=== PATIENT | female | born 1985 | race African-American/Black ===

== ENCOUNTER 2017-08-09 15:00 | Inpatient (IN) | payer OTHER ==
[~2017-08-09] VITALS: Ht 175.3 cm; Wt 72.6 kg
--- NOTE | ~2017-08-09 | O ---
[facility] [place] [address] OPERATIVE REPORT Name: DANIELLE ALVAREZ Room #: 416-P [facility] IN M.R.#: [id number] Admission: 08/09/17 Attend Phys: Murtaza Cleveland DO Discharge: 08/11/17 Date of : 87 Report #: [id number] THIS REPORT FOR: //name// CC: [facility] physician/PCP Murtaza Cleveland DATE OF SERVICE: 08/10/2017 SERVICE: Orthopedics. FACILITY: [facility] SURGEON: Kelvin Baxter M.D. ASTHMA EDUCATOR: None. PREOPERATIVE DIAGNOSES: Right tibia and fibula shaft fractures. POSTOPERATIVE DIAGNOSES: Right tibia and fibula shaft fractures. PROCEDURE: Closed reduction with application of long leg cast to right tibia and fibula fractures. COMPLICATIONS: None. DRAINS: None. SPECIMENS: None. FINDINGS: Adequate alignment after casting and cast wedging, confirmed on fluoroscopy. HISTORY AND INDICATIONS: The patient is a 32-year-old female who sustained a fall while rollerskating with her children yesterday. She was admitted for definitive management and her risks and benefits to the various treatment options were reviewed with her and her in some detail at the bedside. We discussed both surgical and nonsurgical measures and we reviewed the various considerations with each. After a lengthy discussion, she ultimately selected to a trial casting with closed radiographic followup. In the event that casting results in loss of alignment, we will convert to surgical treatment likely an IM nailing. We discussed the risks of nailing in terms of anterior knee pain, scarring, typical surgical risks including infection, etc. as well as other considerations related to nonsurgical measures after questions were answered we made plans to proceed with closed reduction and casting of the right leg. PROCEDURE IN DETAIL: After right leg was correctly identified as the operative [facility] [address] [place] [address] OPERATIVE REPORT Name: DANIELLE ALVAREZ Room #: 416-P [facility] IN [place]#: [id number] Admission: 08/09/17 Attend Phys: Murtaza Cleveland DO Discharge: 08/11/17 Date of : 87 Report #: [id number] extremity, the patient was taken to the operating room where she was transferred from the hospital bed to the operating table and sedation was induced without complication. She was padded appropriately. A time-out procedure was performed and then the right leg was evaluated under multiple planes of fluoroscopy. There was an apex posterior angulation, but overall the alignment was very close to anatomic with the exception of slight lateral translation of the distal segment, a well-padded long leg cast was applied in the following fashion. First, the stockinette was applied and then padding was wrapped from toe to thigh and then a short leg cast incorporating the ankle was rolled and mold was held after multiple planes of x-ray were used to assess the overall alignment. Once this had cured, I again assessed the alignment on the AP and lateral and felt that the apex posterior angulation could be improved some, so in the cast based on the x-rays and then using cast saw to perform a 3/4 circumferential cut in the cast transversely with care taken to avoid injury to the soft tissues and then used tongue depressor segments to perform wedging of the cast at the appropriate position after the wedges were put into place x-ray was taken to confirm that an improved alignment had been achieved and then a blunt object was split between the cast padding and the cast wedge to ensure that there was not any pressure from the cast wedges on the underlying soft tissues. After this was confirmed, the remaining gap was packed with cast padding to provide stability to the cast wedges and then the cast was overwrapped at the level of the wedge and then it was extended into a long leg cast and then the leg was held in appropriate position to avoid soft tissue pressure along the popliteal fossa. While this was being allowed to cure suprapatellar and supracondylar mold was applied in the standard fashion and then the cast was allowed to cure. Final x-rays were taken on both the AP and the lateral looking on both the knee and the ankle to confirm that the alignment of each joint was parallel on the AP and the lateral. The overall fracture alignment was acceptable as well and so the patient was awakened from anesthesia and taken to recovery room in stable condition. There were no complications and no counts were performed as there was not an incision. <ELECTRONICALLY SIGNED> By: Kelvin Baxter MD 08/15/17 1847 1723 180 Kelvin Baxter MD /nt
[2017-08-09 15:01] VITALS: BP 144/87
[2017-08-09 17:23] VITALS: BP 121/68
[2017-08-09 17:44] VITALS: BP 144/90
[2017-08-09 20:00] VITALS: BP 135/72
[2017-08-10 06:11] LABS: ABSOLUTE NEUTROPHILS 3.9 thou/uL (1.4-8.2); BASOPHILS 0.5 % (0.0-2.0); EOSINOPHILS 2.3 % (0.0-3.0); HEMATOCRIT 32.8 % (37.0-47.0); HEMOGLOBIN 11.3 gm/dL (12.0-15.0); LYMPHOCYTES 32.6 % (24.0-44.0); MCH 27.3 pg (26.0-34.0); MCHC 34.3 g/dL (28.0-37.0); MCV 79.5 fL (80.0-100.0); MONOCYTES 5.5 % (1.0-8.0); PLATELET COUNT 177 thou/uL (150-400); POLYS 59.1 % (36.0-66.0); RBC 4.12 mil/uL (4.20-5.00); RDW 12.2 % (10.5-14.5); WBC 6.7 thou/uL (4.0-11.0)
[2017-08-10 06:25] LABS: CALCIUM 8.9 mg/dL (8.5-10.1); CREATININE 0.7 mg/dL (0.6-1.0); POTASSIUM 3.7 mmol/L (3.5-5.1)
[2017-08-10 06:30] VITALS: BP 108/76
[2017-08-10 12:26] VITALS: BP 122/83
[2017-08-10 18:30] VITALS: BP 138/88
[2017-08-10 18:31] VITALS: BP 138/88
[2017-08-10 19:00] VITALS: BP 119/81
[2017-08-10 20:00] VITALS: BP 134/86
[2017-08-11] VITALS: BP 108/72
[2017-08-11 05:30] VITALS: BP 121/68
[2017-08-11 08:00] VITALS: BP 103/59
[2017-08-11] MEDS ORDERED: PERCOCET PO (09:21)
[2017-08-11 12:12] VITALS: BP 103/59
[2017-08-21] MEDS ORDERED: CALCIUM 600 +1 EAC1 PO (13:28)
== END 2017-08-11 18:30 | disposition home or self-care (01) | DRG 563 ==
LOC: ER 15:00 → EDBD 15:00 → EROBS 16:18 → 4N 16:18 → ENTRNSPT 08-11 18:09 → 4N 08-11 18:30
PROVIDERS: Family Medicine
PROC: 2W3LX1Z Immobilization of Right Lower Extremity using Splint (ICD-10-PCS; 2017-08-09)
PROC: 0QSGXZZ Reposition Right Tibia, External Approach (ICD-10-PCS; principal; 2017-08-10)
DX: S82.391A Other fracture of lower end of right tibia, initial encounter for closed fracture (principal); S82.61XA Displaced fracture of lateral malleolus of right fibula, initial encounter for closed fracture; W18.39XA Other fall on same level, initial encounter; Y93.51 Activity, roller skating (inline) and skateboarding; Y93.89 Activity, other specified; Y92.89 Other specified places as the place of occurrence of the external cause; Y99.8 Other external cause status
CPT/HCPCS: 10790; 50010; 50101; 52121; 62110; 62900; 70005

== ENCOUNTER 2017-08-22 05:29 | Day surgery (SDC) | payer OTHER ==
[~2017-08-22] VITALS: Ht 175.3 cm; Wt 69.9 kg
--- NOTE | ~2017-08-22 | O ---
[facility] [place] [address] OPERATIVE REPORT Name: DANIELLE ALVAREZ Room #: 404-P [facility]#: [id number] Admission: 08/22/17 Attend Phys: Kelvin Baxter MD Discharge: Date of : 87 Report #: [id number] THIS REPORT FOR: //name// CC: [facility] physician/PCP Kelvin Baxter DATE OF SERVICE: 08/22/2017 SERVICE: Orthopedics. FACILITY: Health system SURGEON: Kelvin Baxter MD SALESPERSON HOSIERY: None. PREOPERATIVE DIAGNOSIS: Closed right tibia and fibular shaft fractures. POSTOPERATIVE DIAGNOSIS: Closed right tibia and fibular shaft fractures. PROCEDURE: Closed reduction, intramedullary nailing, right tibia fracture. ANESTHESIA TYPE: General. COMPLICATIONS: None. DRAINS: None. SPECIMEN: None. FINDINGS: 1. Synthes 375 mm x 12 mm IM nail with proximal interlocking screw x 1 and distal interlocking screw x 3. 2. Good alignment on AP and lateral after internal fixation. 3. Stable fibula fracture after IM nailing. HISTORY: The patient is a 32-year-old female with a history of right tibia fracture sustained approximately 2 weeks ago while roller skating. She was admitted to the hospital, and has had surgical versus nonsurgical treatment options discussed with her in great detail. She had particular concerns about surgical management with IM nailing and therefore selected treatment with closed reduction and casting. She did well with this initially and was maintaining alignment; however, she began having concerns about formal discomfort with the cast and then felt like the fracture was moving within the cast. She therefore elected to prefer to surgical treatment. The risks, benefits, alternatives and indications for surgery were discussed with her in detail as well as her [address] [address] OPERATIVE REPORT Name: KIMDANIELLE Room #: 404-P [facility].#: [id number] Admission: 08/22/17 Attend Phys: Kelvin Baxter MD Discharge: Date of : 87 Report #: [id number] in the preoperative counseling session. The risks include but not limited to pain, bleeding, infection, injury to nerves or blood vessels, persistent pain despite surgical intervention including anterior knee pain as well as complications related to anesthesia such as stroke, heart attack, pulmonary complications, thromboembolic disease and . Despite these risks, she wished to proceed. DESCRIPTION OF PROCEDURE: After the right leg was correctly identified as the operative extremity, the patient was taken to the operating room and placed supine. General anesthesia was induced without complication. She was padded appropriately. Prophylactic antibiotics were administered at appropriate time. After tourniquet was applied to the right leg, right leg was prepped and draped in standard sterile fashion. Time-out procedure was performed. The leg was elevated and exsanguinated with elevation and then tourniquet was inflated to 250 mmHg. Total tourniquet time was 21 minutes. An anteromedial incision was made just medial to medial border of the patellar tendon. Dissection was taken down to the peritenon, which was then incised as was the patellar tendons, utilizing a split approach through this offset skin incision. Multiple planes of x-ray were used to identify the starting point for the guidepin and then the pin was advanced into proximal tibia. The entry reamer was utilized to obtain access to the canal. A bent-tipped ball-tipped guidewire and this was passed across the fracture with care taken to perform an over reduction maneuver in order to optimize the position of the guide pin, ultimately achieving a center-center position in the distal segment. After this was completed, the canal was sequentially reamed to a size 13 mm canal for a 12 mm nail diameter and it was sized to 12mm nail. Reduction maneuver was then held and maintained, utilizing multiple planes of x-ray and then the nail was advanced across the fracture site with care taken to ensure that nail had a good position within the distal segment and maintained good alignment on AP and lateral views. Please note that the tourniquet was let down prior to reaming the tibial canal. Based on the distal location of fracture, it was felt that only 1 proximal locking screw was needed. Placed the anterior to posterior screw first using x-ray guidance, but the screw head was quite prominent in this particular patient and had significant concerns about prominent hardware. So I elected to remove this screw and placed the oblique screw anteromedially and this sat beneath the soft tissues much better and then perfect circles technique was used to place 1 anterior to posterior and 2 medial to lateral distal locking screws with open incisions made and blunt dissection taken down to the bone to ensure that no vital structures were injured. Final x-rays were then taken of the hardware as well as the fracture and the wounds were copiously irrigated. The patellar tendon was repaired with 0 Vicryl suture in [id number] interrupted fashion. The peritenon was repaired with 2-0 Vicryl suture. The skin was closed with 2-0 Vicryl and all incisions were closed with skin nikki. Sterile dressings were applied. The patient was placed in a boot. She was awakened [address] [address] OPERATIVE REPORT Name: DANIELLE ALVAREZ Room #: 404-P [facility]#: [id number] Admission: 08/22/17 Attend Phys: Kelvin Baxter MD Discharge: Date of : 87 Report #: [id number] from anesthesia and taken to recovery room in a stable condition. There were no complications and all counts were recorded as correct. <ELECTRONICALLY SIGNED> By: Kelvin Baxter MD 08/23/17 1321 1840 10 Kelvin Baxter MD /nt
[~2017-08-22 05:29] MED LIST: CALCIUM 600 +1 EAC1 PO; PERCOCET PO
[2017-08-22 10:00] VITALS: BP 147/69
[2017-08-22 16:30] VITALS: BP 132/83
[2017-08-22 17:00] VITALS: BP 141/85
[2017-08-22 17:30] VITALS: BP 139/84
[2017-08-22 18:30] VITALS: BP 136/85
[2017-08-23 04:00] VITALS: BP 122/64
[2017-08-23 08:00] VITALS: BP 121/65
[2017-08-23 13:52] VITALS: BP 121/65
== END 2017-08-23 16:21 | disposition home or self-care (01) ==
LOC: OR 05:29 → TBA 05:29 → 4N 05:29 → TBA 05:30 → OR 10:07 → 4N 15:57 → OR 17:04
DX: S82.251A Displaced comminuted fracture of shaft of right tibia, initial encounter for closed fracture (principal); S82.451A Displaced comminuted fracture of shaft of right fibula, initial encounter for closed fracture; Z79.891 Long term (current) use of opiate analgesic; X58.XXXA Exposure to other specified factors, initial encounter; Y93.89 Activity, other specified; Y92.89 Other specified places as the place of occurrence of the external cause; Y99.8 Other external cause status
CPT/HCPCS: 50010; 50101; 50386; 50635; 51412; 55445; 57091; 62110; 62900; 64037; 65100; 70005